=== PATIENT | female | born 2000 | race Caucasian/White ===

== ENCOUNTER 2021-04-18 20:15 | Emergency (ER) | payer SELFPAY ==
[~2021-04-18] VITALS: Ht 165.1 cm; Wt 52.2 kg
[2021-04-18 20:18] VITALS: BP_SYST 113
--- NOTE | 2021-04-18 20:18 | NUR ---
Pt AAOx3, sitting up in bed, slow but coherent speech, able to answer questions appropriately. Pt states that she smoked a joint about an hour ago. Denies c/o pain or discomfort, NAD.
--- NOTE | 2021-04-18 20:18 | NUR ---
Patient to ER bed 6 to gown for evaluation. Side rails up. Report given to TANISHA BETH.
--- NOTE | 2021-04-18 20:36 | NUR ---
URINE SPECIMEN SENT TO LAB FOR ANALYSIS.
--- NOTE | 2021-04-18 20:40 | NUR ---
DR. CHRISTIAN AT BEDSIDE FOR EVALUATION.
--- NOTE | 2021-04-18 21:10 | NUR ---
Pt elopes. Pt seen walking in parking lot with unsteady gait. Pt allows RN to remove PIV, angiocath tip intact, pressure dsg applied, no active bleeding. Pt then states that she wants to stay and be treated. Pt assisted back to ER bed 6.
[2021-04-18 21:50] LABS: BASOPHILS # (AUTO) 0.1 K/uL (0.0-0.2); BASOPHILS % (AUTO) 0.8 % (0.0-2.0); EOSINOPHILS # (AUTO) 0.3 K/uL (0.0-0.4); HEMOGLOBIN 13.8 g/dL (12.0-16.0); LYMPHOCYTES % (AUTO) 34.1 % (20.5-51.5); MEAN CORPUSCULAR HEMOGLOBIN 33 pg (27-31); MEAN CORPUSCULAR HGB CONC 34 % (32-36); MEAN CORPUSCULAR VOLUME 97 fL (79.0-98.0); MONOCYTES # (AUTO) 0.5 K/uL (0.0-1.0); MONOCYTES % (AUTO) 5.5 % (1.7-9.3); NEUTROPHILS % (AUTO) 56.6 % (40.0-70.0); PLATELET COUNT (AUTO) 273 K/uL (130-430); RED BLOOD CELL COUNT(AUTO) 4.12 MIL/uL (4.2-6.2); RED CELL DISTRIBUTION WIDTH 12.2 % (9.0-15.0); WHITE BLOOD COUNT (AUTO) 8.8 K/uL (4.8-10.8)
--- NOTE | 2021-04-18 22:09 | NUR ---
patient eloped from the ED. unable to locate patient. MD notified.
[2021-04-18 22:33] LABS: ALANINE AMINOTRANSFERASE 23 U/L (12-78); ALBUMIN 3.8 g/dL (3.4-4.8); ALCOHOL, BLOOD 284 mg/dL (<10); ANION GAP 7 (5-15); ASPARTATE AMINOTRANSFERASE 17 U/L (10-37); CALCIUM 9.1 mg/dL (8.4-11.0); CHLORIDE 102 mmol/L (98-107); CREATININE 1.19 mg/dL (0.55-1.30); GLUCOSE 64 mg/dL (70-99); POTASSIUM 3.2 mmol/L (3.5-5.1); SODIUM SERUM 140 mmol/L (136-145); UREA NITROGEN, BLOOD 8 mg/dL (8-21)
[2021-04-18 22:42] LABS: GFR AFRICAN AMERICAN 73 mL/min (>90)
[2021-04-18 22:43] LABS: ACETAMINOPHEN < 1 ug/mL (1-30)
[2021-04-18 22:51] LABS: BARBITURATE, URINE NEGATIVE (NEG <=200); BENZODIAZEPINE, URINE NEGATIVE (NEG <=150); CANNABINOID, URINE POSITIVE (NEG <=50); COCAINE, URINE NEGATIVE (NEG <=150); METHAMPHETAMINES SCREEN,URINE NEGATIVE (NEG <=500); OPIATE, URINE NEGATIVE (NEG <=100); PHENCYCLIDINE SCREEN,URINE NEGATIVE (NEG <=25); UR TRICYCLIC ANTIDEPRESSANTS NEGATIVE (NEG <=300); URINE AMPHETAMINE NEGATIVE (NEG <=500); URINE METHADONE NEGATIVE (NEG <=200); URINE OXYCODONE SCREEN NEGATIVE (NEG <=100); URINE PROPOXYPHENE SCREEN NEGATIVE (NEG <=300)
[2021-04-18 23:08] LABS: TOTAL BILIRUBIN 0.1 mg/dL (0.0-1.0)
== END 2021-04-18 22:09 | disposition left against medical advice (07) ==
LOC: SED 20:15
DX: F10.129 Alcohol abuse with intoxication, unspecified (principal); F12.988 Cannabis use, unspecified with other cannabis-induced disorder; F15.90 Other stimulant use, unspecified, uncomplicated; Y90.8 Blood alcohol level of 240 mg/100 ml or more; Z79.899 Other long term (current) drug therapy
CPT/HCPCS: 36415; 80053; 80307; 81025; 85025; 99283; G0480; G0481; G0482